=== PATIENT | male | born 1990 | race Caucasian/White ===

== ENCOUNTER → 2019-11-11 10:10 | Outpatient (BNVA) | payer MEDICAID, SELFPAY | PROVIDERS: Visit Provider Specialist | DX: G35 Multiple sclerosis (principal) | CPT/HCPCS: 99205 ==

== ENCOUNTER → 2019-12-23 08:12 | Outpatient (BNVA) | payer MEDICAID, SELFPAY | PROVIDERS: Visit Provider Specialist | DX: G35 Multiple sclerosis (principal) | CPT/HCPCS: 99215 ==

== ENCOUNTER 2019-12-23 10:15 | Outpatient (CLI) | payer MEDICAID, SELFPAY ==
[2019-12-23 11:01] LABS: Basophils # 0.1 10^3/uL (0.0-0.1); Basophils % 1.2 %; Eosinophils # 0.5 10^3/uL (0.0-0.8); Hematocrit 46.6 % (42.0-52.0); Hemoglobin 15.4 g/dL (11.7-16.6); Lymphocytes # 1.8 10^3/uL (0.8-4.8); Lymphocytes % 24.6 %; Mean Corpuscular Hemoglobin 30.5 pg (28.0-34.0); Mean Corpuscular Volume 92.3 fL (80-94); Mean Platelet Volume 12.2 fL (7.4-10.4); Monocytes # 0.5 10^3/uL (0.2-0.9); Monocytes % 6.5 %; Neutrophils # 4.58 10^3/uL (1.8-7.7); Neutrophils % 61.6 %; Nucleated Red Blood Cells % 0 %; Platelet Count 193 10^3/cmm (130-400); Red Blood Count 5.05 10^6/uL (4.1-5.3); Red Cell Distribution Width 12.3 % (12.1-15.1); White Blood Count 7.4 10^3/uL (4.0-10.0)
[2019-12-23 11:22] LABS: Alanine Aminotransferase 20 U/L (0-41)
== END 2019-12-23 10:16 | disposition home or self-care (01) ==
LOC: LAB 10:18
PROVIDERS: PCP Family Medicine; Visit Provider Specialist
DX: G35 Multiple sclerosis (principal)
CPT/HCPCS: 84460; 85025

== ENCOUNTER → 2020-01-07 09:46 | Outpatient (BNVA) | payer MEDICAID, SELFPAY | PROVIDERS: PCP Family Medicine; Visit Provider Specialist | DX: R56.9 Unspecified convulsions (principal); F17.210 Nicotine dependence, cigarettes, uncomplicated | CPT/HCPCS: 95816 ==

== ENCOUNTER 2020-03-14 08:09 | Outpatient (CLI) | payer MEDICAID, SELFPAY ==
--- NOTE | 2020-03-14 08:00 | MR_ITS ---
WS: [id number] MRI BRAIN WITH AND WITHOUT CONTRAST HISTORY: MS COMPARISON: 10/27/2019 TECHNIQUE: Multiplanar imaging performed through the brain with Prohance 17 ml's IV. Examination is compromised by motion artifact. The postcontrast images are suboptimal. No acute infarcts are seen. No hemorrhage. There is extensive increased T2 and FLAIR signal abnormalities throughout the white matter beginning at the vertex. Subcortical and deep white matter signal abnormalities bilaterally are extensive. Conf luent and patchy opacifications extending to involve the corpus callosum. Distribution consistent wit h multiple sclerosis demyelination plaques. There is also involvement of the temporal lobes, nabeel and the cerebellar peduncles bilaterally. On the T1 sequences there are numerous white matter areas of d ecreased signal intensity related to areas of necrosis and axonal demyelination. Ventricles and extra-axial spaces are normal. Clivus and pituitary gland are normal. Postcontrast images are significantly limited by motion artifact. After the contrast injection motion artifact increases due to patient's anxiety and trembling. No definite areas of enhancement are iden tified. Dural venous sinuses are poorly visualized on the postcontrast examination. Paranasal sinuses: Mild mucoperiosteal thickening throughout the maxillary sinuses. Mastoid air cells: RIGHT mastoid air cell disease. Calvarium and scalp: Normal. MR/MR head wo/w con [id number] IMPRESSION: 1. Severe bilateral demyelinating lesions most consistent with advanced and lo ng-term multiple sclerosis. No obvious change since 10/27/2019. There are additi onal T1 areas of decreased signal which can be seen with axonal destruction and related to a worse prognosis. White matter lesions in a confluent manner in th e supratentorial white matter but also noted in the nabeel and cerebellum to a le sser extent. 2. Unfortunately the patient was unable to remain still after the postcontrast images. Postcontrast images are significantly degraded by motion.
--- NOTE | 2020-03-14 08:45 | MR_ITS ---
WS: [id number] MRI CERVICAL SPINE with and without contrast. HISTORY: MS COMPARISON: None available. Normal cervical alignment with no compression fracture or significant disc space narrowing. No definite signal abnormalities within the cord. There is mild mass effect and thinning of the cord at the C5-6 level which I believe is related to disc disease and protrusion and not a demyelinating p laque. Craniocervical junction, C1 and C2 relationship, odontoid process and soft tissues are normal. C2-C3: Normal. C3-C4: Normal. C4-C5: Mild annular disc bulging. Shallow central disc protrusion with annular fissure. C5-C6: Moderate-sized LEFT paracentral disc protrusion with annular fissure. Mild deformity the ventr al thecal sac. No severe stenosis. C6-C7: Normal. C7-T1: Normal. Cannot exclude active demyelination as there is significant motion artifact on the post contrast exam ination. MR/MR cervical spine wo/w [id number] IMPRESSION: 1. Study is limited by motion. 2. No definite demyelinating lesions in the cervical cord. There is some very mild change in signal and narrowing of the cervical cord at C5-6 level which I believe is related to disc protrusion and not demyelination. 3. Moderate LEFT paracentral disc protrusion at C5-6. 4. Shallow central disc protrusion at C4-5.
== END 2020-03-14 08:10 | disposition home or self-care (01) ==
PROVIDERS: PCP Family Medicine; Visit Provider Specialist
DX: G35 Multiple sclerosis (principal); M50.222 Other cervical disc displacement at C5-C6 level
CPT/HCPCS: 70553; 72156; A9579

== ENCOUNTER → 2020-03-30 14:02 | Outpatient (BNVA) | payer MEDICAID, SELFPAY | PROVIDERS: PCP Family Medicine; Visit Provider Specialist | DX: G35 Multiple sclerosis (principal); F17.210 Nicotine dependence, cigarettes, uncomplicated | CPT/HCPCS: 99215 ==

== ENCOUNTER → 2020-09-28 14:08 | Outpatient (BNVA) | payer MEDICAID, SELFPAY | PROVIDERS: PCP Family Medicine; Visit Provider Specialist | DX: G35 Multiple sclerosis (principal); F17.210 Nicotine dependence, cigarettes, uncomplicated | CPT/HCPCS: 99214 ==